=== PATIENT | male | born 1990 | race Two or more races ===

== ENCOUNTER 2024-01-17 17:13 | Emergency (ER) | payer OTHER, SELFPAY ==
[2024-01-17 17:32] VITALS: BP 139/87; PULSE 71; RESP 20; O2SAT 97; BMI 36.3
--- NOTE | 2024-01-17 17:46 | CT_ITS ---
Patient: ALMA FIGUEROA Facility:?[facility] Patient ID:?[id number] Site Patient ID:?[id number]. Site :?[id number] Study:?CT-Abdomen/Pelvis W/ ISOVUE 370-01/17/2024 6:46:33 PM Ordering Physician:CHAVA Final Report: INDICATION: Left upper quadrant pain. TECHNIQUE: CT abdomen and pelvis acquired with 110 cc of Isovue 370 IV contrast. COMPARISON: None available. FINDINGS: Lower chest: Mild bibasilar ground-glass opacities. No pleural or pericardial effusions Liver: Fatty change. No focal lesion. Spleen: Unremarkable. Pancreas: Unremarkable. Gallbladder and bile ducts: No calcified gallstones or biliary ductal dilatation. Kidneys: No urolithiasis, hydronephrosis or suspicious renal lesion. Adrenal glands: Unremarkable. GI tract: No evidence of obstruction or acute appendicitis. No focal inflammatory change elsewhere in the GI tract. No free air, free fluid or suspicious fluid collection. Vascular structures: Unremarkable. Lymph nodes: Unremarkable. Pelvic Organs: Unremarkable. Bones: No acute abnormality. IMPRESSION: 1. No acute intra-abdominal or pelvic abnormality. 2. Fatty change of the liver. 3. Mild bibasilar ground glass opacities are thought to most likely represent subsegmental atelectasis. Infection/inflammation could be considered in the appropriate clinical setting. Dictated by Jean Claude Duenas MD @ 01/17/2024 7:36:35 PM Please note that all CT scans at this facility use dose modulation, iterative reconstruction, and/or weight-based dosing when appropriate to reduce radiation dose to as low as reasonably achievable. Dictated by: Jean Claude Duenas MD @ 01/17/2024 19:36:51 Signed by:?Jean Claude Duenas MD @01/17/2024 7:36:51 PM (Electronic Signature)
--- NOTE | 2024-01-17 17:49 | ED.ABDPAIN ---
HPI - Abdominal Pain General Date Seen: 01/17/24 Chief Complaint: Abdominal Pain Stated Complaint: Abdominal pain-Lower left Time Seen by Provider: 01/17/24 17:26 Source: patient Mode of arrival: ambulatory Limitations: no limitations History of Present Illness HPI narrative: Patient is a 33-year-old male with no pertinent medical problems presenting for left upper quadrant abdominal pain. He states the pain started 3 days ago. Pain has been gradually getting worse since then. Has not been taking anything for the pain. States he has had issues in the past where he feels very bloated and he thinks that is happening again. States every time he burps he feels like the pain gets worse. He has been eating and drinking normally but does state the food makes his abdominal pain slightly worse. He had a normal bowel movement this morning. Denies fevers, chills, chest pain, headache, vision changes, weakness, like this, nausea, vomiting, diarrhea, constipation. States when he takes a deep with the left upper quadrant patient gets wounds. Is not aware of any recent abdominal injuries. No other concerns noted at this time. Related Data Home Medications Medication Instructions Recorded Confirmed No Known Home Medications 01/17/24 01/17/24 Allergies Allergy/AdvReac Type Severity Reaction Status Date / Time No Known Drug Allergies Allergy Verified 01/17/24 17:30 Review of Systems Status of ROS Reports: 10 or more systems reviewed and unremarkable except as noted in History and below [facility] Social History Smoking Status: Never smoker Do you use any of these nicotine containing products: None How often do you have a drink containing alcohol: never AUDIT-C Alcohol total score: 0 Non-prescribed substance use: denies use service: No Exam Narrative: Exam Narrative: Const: Well-nourished, Well-developed, in mild distress Eyes: PERRL, no conjunctival injection, and symmetrical lids HENT: Atraumatic external nose and ears. Moist mucous membranes. Neck: Symmetric, trachea midline, No thyromegaly. CVS: RRR, No murmurs or gallops. Peripheral pulses 2+ and equal in all extremities RESP: Unlabored respiratory effort. Clear to auscultation bilaterally. GI: Left upper quadrant tenderness, Nondistended, No rebound or guarding. MSK:Extremities w/o deformity, Normal Active ROM Skin: Warm, Dry. No rashes or lesions. Neuro: Normal Muscle tone, No focal neurological deficits. Psych: Awake, Alert, & Oriented x3. Appropriate mood and affect. Const: Vital Signs, click to edit/add: Vital Signs - 24 hr 01/17/24 17:32 01/17/24 19:47 Pulse Rate [Pulse Oximeter] 71 Respiratory Rate 20 Blood Pressure [Ri ght Upper Arm] 139/87 134/93 H Pulse Oximetry 97 Oxygen Delivery Me thod Room Air Course Vital Signs Vital signs: Initial Vital Signs Temperature Source Temporal Artery Scan 01/17/24 17:32 Pulse Rate 71 01/17/24 17:32 Pulse Rhythm Regular 01/17/24 17:32 Respiratory Rate 20 01/17/24 17:32 Blood Pressure 139/87 01/17/24 17:32 Blood Pressure Mean 104 01/17/24 17:32 Blood Pressure Position Supine 01/17/24 17:32 Pulse Oximetry 97 01/17/24 17:32 Oxygen Delivery Method Room Air 01/17/24 17:32 Vital Signs Pulse Rate 71 01/17/24 17:32 Respiratory Rate 20 01/17/24 17:32 Blood Pressure 139/87 01/17/24 17:32 Pulse Oximetry 97 01/17/24 17:32 Oxygen Delivery Method Room Air 01/17/24 17:32 Pulse Rate 71 01/17/24 17:32 Respiratory Rate 20 01/17/24 17:32 Blood Pressure 134/93 H 01/17/24 19:47 Pulse Oximetry 97 01/17/24 17:32 Oxygen Delivery Method Room Air 01/17/24 17:32 MDM - Abdominal Pain MDM Narrative Medical decision making narrative: Patient is a 33-year-old male presenting for left upper quadrant abdominal pain. Patient states he had vaguely similar symptoms several years ago. Has been having normal bowel movements. No previous abdominal surgeries. SBO seems unlikely. But could be some kind of splenic or kidney issue causing his pain at this time so he will evaluate this a CT scan. Does have known fatty liver disease but is having no symptoms in the right side of his abdomen. Will also he cbc, CMP, lipase, COVID/flu/RSV Lab work all returned showing no concerning abnormalities. He is mildly elevated the AST and ALT. He does have a known fatty liver disease so this is not of concern for me at this time. He has not been requesting any pain or nausea medicine at this time. CT scan reviewed by myself and the radiologist shows that fatty change of liver but no other concerning intra-abdominal abnormalities. There is some mild bibasilar ground-glass opacities likely atelectasis. Clinically does not appear to be pneumonia. I cannot say for certain was causing his symptoms but does not appear to be anything emergent. Patient be discharged home with a prescription of Zofran through [facility]. He is agreeable to this plan. Lab Data Labs: Lab Results 01/17/24 Range/Units 18:00 WBC 8.64 (4.50-11.00) K/uL RBC 5.19 (4.30-5.90) m/uL Hgb 15.5 (13.5-17.5) gm/dL Hct 45.4 (37.0-53.0) % MCV 88 (80-100) fL MCH 30 (26-34) pg MCHC 34 (32-36) gm/dL RDW Coeff of Luc 12.9 (11.5-15.5) % Plt Count 273 (140-440) K/uL Neut % (Auto) 56.7 (42.0-72.0) % Lymph % (Auto) 28.0 (20-44) % Boundary % (Auto) 10.0 (0.0-11.0) % Eos % (Auto) 4.1 (0.0-7.0) % Baso % (Auto) 0.5 (0.0-3.0) % Neut # (Auto) 4.91 (1.7-7.0) K/uL Lymph # (Auto) 2.42 (0.90-2.90) K/uL Boundary # (Auto) 0.90 (0.00-0.90) K/UL Eos # (Auto) 0.35 (0.00-0.50) K/uL Baso # (Auto) 0.04 (0.00-0.30) K/uL Abs Immat Gran (auto) 0.06 (0.00-0.30) K/uL Imm/Tot Granulo (auto) 0.7 % Sodium 138 (135-149) mmol/L Potassium 4.1 (3.6-5.1) mmol/L Chloride 100 (96-114) mmol/L Carbon Dioxide 30 (20-32) mmol/L Anion Gap 8 (7-15) mEq/L BUN 17 (5-24) mg/dL Creatinine 1.0 (0.5-1.5) mg/dL Estimated Creat Clear 95.70 Estimated GFR 103 ml/min Glucose 113 (60-115) mg/dL Calcium 9.7 (8.4-10.6) mg/dL Total Bilirubin 0.5 (0.1-1.5) mg/dL AST 41 H (12-35) U/L ALT 69 H (4-50) U/L Alkaline Phosphatase 86 (40-150) U/L Total Protein 8.2 (6.0-8.3) g/dL Albumin 4.7 (3.3-5.0) g/dL Lipase 56 (23-300) U/L SARS-CoV-2 (PCR) Negative SARS-CoV-2 (Negative) Influenza Type A (PCR) Negative PCR FLU A (Negative) Influenza Type B (PCR) Negative PCR FLU B (Negative) RSV (PCR) Negative PCR RSV (Negative) Discharge Plan Discharge Clinical Impression: Abdominal pain Qualifiers: Abdominal location: left upper quadrant Qualified Code(s): R10.12 - Left upper quadrant pain Patient Disposition: Home, Self-Care Condition: Stable Instructions: Abdominal Pain (ED) Additional Instructions: I cannot say for certain what is causing abdominal pain but I do not find any acute concerning abnormalities under lab work or imaging. Follow-up with the primary care provider if symptoms persist into the middle of next week . Return for new or worsening symptoms Prescriptions: No Action No Known Home Medications Follow Up/Referrals: Provider,Not a Local [Primary Care Provider] - Stand Alone Forms: [employer] Info Instructions
[2024-01-17 18:15] LABS: Basophils Absolute Auto 0.04 K/uL (0.00-0.30); Basophils Percent Auto 0.5 % (0.0-3.0); Eosinophils Absolute Auto 0.35 K/uL (0.00-0.50); Eosinophils Percent Auto 4.1 % (0.0-7.0); Hematocrit 45.4 % (37.0-53.0); Hemoglobin* 15.5 gm/dL (13.5-17.5); Immature Granulocytes Abs Auto 0.06 K/uL (0.00-0.30); Immature Granulocytes Pct Auto 0.7 %; Lymphocytes Absolute Auto 2.42 K/uL (0.90-2.90); Mean Corpuscular HGB Conc 34 gm/dL (32-36); Mean Corpuscular Hemoglobin 30 pg (26-34); Mean Corpuscular Volume 88 fL (80-100); Neutrophils Absolute Auto 4.91 K/uL (1.7-7.0); Neutrophils Percent Auto 56.7 % (42.0-72.0); Platelet Count* 273 K/uL (140-440); RDW Coefficient of Variation % 12.9 % (11.5-15.5); Red Blood Count 5.19 m/uL (4.30-5.90); White Blood Count* 8.64 K/uL (4.50-11.00)
[2024-01-17 18:28] LABS: Albumin* 4.7 g/dL (3.3-5.0); Chloride* 100 mmol/L (96-114); Sodium* 138 mmol/L (135-149)
[2024-01-17 18:29] LABS: Potassium* 4.1 mmol/L (3.6-5.1)
[2024-01-17 18:31] LABS: Alkaline Phosphatase* 86 U/L (40-150); Anion Gap 8 mEq/L (7-15); Aspartate Amino Transferase* 41 U/L (12-35); Bilirubin Total* 0.5 mg/dL (0.1-1.5); Blood Urea Nitrogen* 17 mg/dL (5-24); Carbon Dioxide* 30 mmol/L (20-32); Estimated Glomerular Filt Rate 103 ml/min; Lipase* 56 U/L (23-300); Total Protein* 8.2 g/dL (6.0-8.3)
[2024-01-17 18:32] LABS: Alanine Aminotransferase* 69 U/L (4-50); Calcium* 9.7 mg/dL (8.4-10.6); Glucose* 113 mg/dL (60-115); Slide Review Reflex No
[2024-01-17 19:34] LABS: PCR FLU A Negative PCR FLU A (Negative); PCR FLU B Negative PCR FLU B (Negative); PCR RSV Negative PCR RSV (Negative); SARS PCR* Negative SARS-CoV-2 (Negative)
[2024-01-17 19:47] VITALS: BP 134/93
[2024-01-17 20:11] VITALS: BP 132/78; PULSE 76; RESP 20; TEMP 36.7; O2SAT 97
== END 2024-01-17 20:22 | disposition home or self-care (01) ==
PROVIDERS: Emergency Provider Student in an Organized Health Care Education/Training Program
DX: R10.9 Unspecified abdominal pain (principal)
CPT/HCPCS: 36415; 74177; 80053; 83690; 85025; 87631; 99283; 99284; 99285; Q9967